=== PATIENT | female | born 1945 | race Caucasian/White ===

== ENCOUNTER → 2016-08-22 | Outpatient (CLI) | payer OTHER ==
[2016-08-22 12:37] LABS: BASO % 0.5 %; BASO ABS # 0.02 K/uL (0-0.2); COMPLETE YES; EOS % 2.5 %; HEMATOCRIT 42.4 % (37-47); IG% 0.2 %; LYMPH ABS # 1.83 K/uL (1.2-3.4); MEAN CELL VOLUME 91.6 fL (80-100); MEAN CORPUSCULAR HEMOGLOBIN 32.2 pg (25-34); MEAN CORPUSCULAR HGB CONC 35.1 g/dl (32-36); MEAN PLATELET VOLUME 11.2 fL (7.4-10.4); MONO % 7.3 %; NEUT % 47.5 %; PLATELET COUNT 234 K/uL (130-400); RED BLOOD COUNT 4.63 M/uL (4.2-5.4); WHITE BLOOD COUNT 4.36 K/uL (4.8-10.8)
[2016-08-22 12:47] LABS: ALT/SGPT 27 U/L (12-78); AST/SGOT 18 U/L (15-37); BLOOD UREA NITROGEN 13 mg/dl (7-18); BUN/CREATININE RATIO 13.2 (10-20); CALCIUM 10.7 mg/dl (8.5-10.1); CARBON DIOXIDE 26 mmol/L (21-32); CHLORIDE 109 mmol/L (98-107); CREATININE 0.99 mg/dl (0.60-1.20); GLUCOSE 91 mg/dl (70-99); POTASSIUM 3.8 mmol/L (3.5-5.1); SODIUM 143 mmol/L (136-145)
[2016-08-22 12:49] LABS: ALB/GLOB RATIO 1.3 (0.9-2); ALKALINE PHOSPHATASE 94 U/L (45-117); CHOLESTEROL 243 mg/dl (0-200); CHOLESTEROL/HDL RATIO 2.3; HDL CHOLESTEROL 106 mg/dl; LDL CHOLESTEROL CALCULATED 121 mg/dl; TRIGLYCERIDES 78 mg/dl (0-150); VERY LOW DENSITY LIPOPROT CALC 16 mg/dl
== END | disposition home or self-care (01) ==
LOC: C.LABPVFM 09:09
PROVIDERS: ATTEND Nurse Practitioner
DX: R68.89 Other general symptoms and signs (principal); Z86.79 Personal history of other diseases of the circulatory system; R00.2 Palpitations; Z00.00 Encounter for general adult medical examination without abnormal findings; Z11.59 Encounter for screening for other viral diseases

== ENCOUNTER → 2016-08-31 | Outpatient (CLI) | payer OTHER | END | disposition home or self-care (01) | LOC: C.LABPVFM 11:18 | PROVIDERS: ATTEND Nurse Practitioner | DX: E83.52 Hypercalcemia (principal) ==